=== PATIENT | female | born 1950 | race Caucasian/White ===

== ENCOUNTER 2016-08-31 15:27 | Observation (INO) | payer MEDICARE, OTHER ==
[~2016-08-31] VITALS: Ht 170.2 cm; Wt 55.8 kg
[2016-08-31 17:38] LABS: RED BLOOD COUNT 4.17 M/UL (4.00-5.10); WHITE BLOOD COUNT 8.7 K/UL (4.5-11.0)
[2016-08-31 17:51] LABS: BUN/CREATININE RATIO 18 (0-10)
[2016-09-01] MEDS ORDERED: PLAVIX75 MG PO (09:16)
[2016-09-01] MEDS ORDERED: OMEPRAZOLE40 MG PO (09:17)
[2016-09-01] MEDS ORDERED: DILANTIN 100 M100 MG PO (09:18)
[2016-09-01] MEDS ORDERED: DOC-Q-LACE100 MG PO (09:19)
[2016-09-01] MEDS ORDERED: PLETAL 100 MG100 MG PO (09:19)
[2016-09-01] MEDS ORDERED: CLARITIN10 M2 PO (09:19)
[2016-09-01] MEDS ORDERED: DILTIAZEM ER120 M1 PO (09:20)
[2016-09-01] MEDS ORDERED: ZESTORETIC 20-1 EAC1 PO (09:21)
[2016-09-01] MEDS ORDERED: NEURONTIN 300300 MG PO (09:23)
[2016-09-01] MEDS ORDERED: PREDNISONE10 MG PO (09:24)
[2016-09-01] MEDS ORDERED: AMBIEN10 MG PO (09:24)
[2016-09-01] MEDS ORDERED: NORCO 10-325 T1 EACH PO (09:25)
[2016-09-01] MEDS ORDERED: IPRAT-ALBUT 0.5-3 ML INH (09:25)
[2016-09-01] MEDS ORDERED: VALIUM 5 MG TAB5 MG PO (09:26)
[2016-09-01] MEDS ORDERED: FLEXERIL 10 MG10 MG PO (09:26)
[2016-09-01] MEDS ORDERED: PHENERGAN 25 MG25 M1 PO (09:26)
[2016-09-01] MEDS ORDERED: SPIRIVA18 MCG INH (09:27)
[2016-09-01] MEDS ORDERED: PROAIR HFA8.5 GM INH (09:28)
[2016-09-01] MEDS ORDERED: CRESTOR20 MG PO (09:30)
[2016-09-01] MEDS ORDERED: SINGULAIR10 MG PO (09:30)
[2016-09-01] MEDS ORDERED: ASPIRIN EC81 MG PO (09:32)
[2016-09-01] MEDS ORDERED: CALCIUM 600 +1 EA12 PO (09:38)
[2016-09-01] MEDS ORDERED: ADVAIR 250-501 EACH INH (09:39)
[2016-09-01] MEDS ORDERED: BREO ELLIPTA 11 EACH INH (09:39)
[2016-09-02 06:00] LABS: HEMOGLOBIN 11.1 gm/dl (12.3-15.3); RED BLOOD COUNT 3.92 M/UL (4.00-5.10)
[2016-09-02 06:04] LABS: WHITE BLOOD COUNT 5.1 K/UL (4.5-11.0)
[2016-09-02 06:16] LABS: BUN/CREATININE RATIO 16 (0-10)
--- NOTE | 2016-09-03 00:34 | NUR ---
UPON EVENING ASSESSMENT THE PATIENT STATED SHE HAD FALLEN ON THE PREVIOUS SHIFT BUT DID NOT TELL THE NURSE ON THAT SHIFT. I ASSESSED THE AREAS SHE SAID HAD BEEN EFFECTED. IT WAS THE RIGHT KNEE AND RIGHT FOOT. NO BRUISING, EDEMA, SKIN ISSUES, OR PAIN WAS PRESENT AT THE TIME OF ASSESSMENT. DR. SHAH WAS NOTIFIED ONCE HE WAS ON THE FLOOR. I HAD CALLED HIM AT 1923 HE WAS ON THE FLOOR ABOUT 10 MINUTES LATER. NOTHING WAS PUT IN FAR ORDERS WERE CONCERNED ABOUT THE FALL.
[2016-09-03] MEDS ORDERED: ZESTRIL10 MG PO (18:10)
== END 2016-09-03 20:00 | disposition home or self-care (01) ==
LOC: ER1 15:27 → ZEROF 20:43 → M/S 20:43 → ER1 20:43 → M/S 09-01 09:20 → ER1 09-01 09:20 → ZEROF 09-01 09:43 → M/S 09-01 09:43
PROVIDERS: Emergency Medicine; Internal Medicine; ADMIT Internal Medicine
DX: R07.9 Chest pain, unspecified (principal); R10.10 Upper abdominal pain, unspecified; J44.9 Chronic obstructive pulmonary disease, unspecified; I10 Essential (primary) hypertension; G40.909 Epilepsy, unspecified, not intractable, without status epilepticus; M81.0 Age-related osteoporosis without current pathological fracture; F41.9 Anxiety disorder, unspecified; F17.210 Nicotine dependence, cigarettes, uncomplicated; Z86.73 Personal history of transient ischemic attack (TIA), and cerebral infarction without residual deficits; Z86.79 Personal history of other diseases of the circulatory system; Z87.09 Personal history of other diseases of the respiratory system; Z82.3 Family history of stroke; Z80.51 Family history of malignant neoplasm of kidney; Z88.0 Allergy status to penicillin; Z79.891 Long term (current) use of opiate analgesic; Z79.899 Other long term (current) drug therapy; Z99.81 Dependence on supplemental oxygen
CPT/HCPCS: ECHO; 36415; 71010; 71260; 76705; 78452; 80048; 80053; 80061; 82550; 82553; 82607; 82746; 83036; 83874; 84443; 84484; 85025; 85027; 85379; 93005; 93017; 93306; 94640; 94664; 96372; 96374; 96375; 96376; 99285; A9502; G0378; J1650; J2060; J2270; J2405; J2785; J7050; Q9962